=== PATIENT | male | born 1965 | race Hispanic/Latino ===

== ENCOUNTER 2018-10-31 09:00 | Day surgery (SDC) | payer OTHER ==
[~2018-10-31 09:00] MED LIST: NACL 0.9% 1000 ML 1,000 ML IV SCH
--- NOTE | 2018-10-31 09:50 | Anesthesia Day of Surgery ---
Anesthesia Day of Surgery - Day of Surgery Patient Examined: Yes Patient H&P Reviewed: Yes Patient is NPO: Yes
--- NOTE | 2018-10-31 09:50 | Anesthesia Consultation ---
Anesthesia Consult and Med Hx Date of service: 10/31/18 - Airway Anesthetic Teeth Evaluation: Good ROM Head & Neck: Adequate Mental/Hyoid Distance: Adequate Mallampati Class: Class II Intubation Access Assessment: Good - Pulmonary Exam CTA: Yes - Cardiac Exam Cardiac Exam: RRR - Pre-Operative Health Status ASA Pre-Surgery Classification: ASA2 Proposed Anesthetic Plan: MAC - Cardiovascular System Hx Hypertension: Yes - Endocrine Hx Non-Insulin Dependent Diabetes: Yes
[2018-10-31] MEDS ORDERED: DIPRIVAN 10 MG/ML IV ONE ×2 (10:26)
--- NOTE | 2018-10-31 11:04 | Procedure Note ---
Date of procedure: 10/31/18 Pre-op diagnosis: Colon Polyp Screening Post-op diagnosis: other (Colon Polyps x 2 (Cecum and Proximal,Transverse Colon Polyp)) Procedure: Colonoscopy and Snare Polypectomy and cold Biopsy Anesthesia: MAC Surgeon: VIOLETA HEREDIA Estimated blood loss: minimal Pathology: list Specimen disposition: to lab Condition: stable Disposition: same day (Encourage fiber intake and avoid aspirin and NSAID and anticoagulants for 5 days. Resume home medication and follow up in 1 to 2 weeks ([phone]).)
[2018-10-31 11:34] VITALS: BP 121/93
--- NOTE | 2018-10-31 11:44 | Operative Report ---
PROCEDURE: Colonoscopy with cold biopsy and snare polypectomy. INDICATIONS: A 53-year-old white male with an underlying history of diabetes mellitus type 2, hypertension, who has never had a colonoscopy done before. Colonoscopy was done as part of colon polyp. Screening procedure was done after getting informed consent with MAC anesthesia. DESCRIPTION OF PROCEDURE: The procedure was done with assistance of anesthesia and in the presence and with the assistance of the GI lab team, which included Florecita LUJAN and Eva jones. Initial rectal exam was unremarkable. Instrument was passed through the rectum onto the cecum, which was identified with ileocecal valve and the appendiceal orifice. Visualization was fair to good. In the cecum, there was a 7-8 mm polyp noted adjacent to the appendiceal orifice that was removed by cold biopsy. The remaining part of the cecum and ascending colon showed normal mucosa. In the proximal transverse colon, there was a 12 mm sessile polyp noted that was removed by snare excision and retrieved. Remaining part of the transverse colon showed normal mucosa and in the distal transverse colon and in the left colon, there was moderate left colon diverticulum. There was moderate diverticular disease noted and the rectum showed minor internal hemorrhoid on the retroverted view. There was minimal bleeding from the biopsy and the polypectomy site. No complications associated with the procedure. ASSESSMENT: Colon polyp screening, colon polyps x 2, one in the cecum that was removed by cold biopsy, one in the proximal transverse colon removed by snare polypectomy. Moderate left and distal transverse colon and diverticula and minor internal hemorrhoid. There was minimal bleeding from the biopsy sites. No complications associated with the procedure. The patient will be asked to avoid aspirin and aspirin-related products for the next 4-5 days and encourage fiber supplements. Resume home medication and follow up in the office in 1-2 weeks' time. Again, procedure was done in the presence and with the assistance of the GI lab team, which included Florecita LUJAN and Eva jones. JOB# [id number] THERESA/ERICKA
== END 2018-10-31 09:01 | disposition home or self-care (01) ==
LOC: GIO 09:00
DX: Z12.11 Encounter for screening for malignant neoplasm of colon (principal); D12.0 Benign neoplasm of cecum; D12.2 Benign neoplasm of ascending colon; I10 Essential (primary) hypertension; E11.9 Type 2 diabetes mellitus without complications; K57.30 Diverticulosis of large intestine without perforation or abscess without bleeding; K64.8 Other hemorrhoids; Z79.84 Long term (current) use of oral hypoglycemic drugs; Z79.899 Other long term (current) drug therapy; Z88.8 Allergy status to other drugs, medicaments and biological substances
CPT/HCPCS: 82962; 88305; J2704; J7030